=== PATIENT | male | born 1965 | race Two or more races ===

== ENCOUNTER → 2020-08-01 | Emergency (ER) | payer OTHER ==
[~2020-08-01] VITALS: Ht 180.3 cm; Wt 93.9 kg
[~2020-08-01] MED LIST: FORTAMET1000 MG; TRULICITY1.5 MG/0.5
== END | disposition home or self-care (01) ==
LOC: ER 22:08
DX: S01.02XA Laceration with foreign body of scalp, initial encounter (principal); W25.XXXA Contact with sharp glass, initial encounter; Y93.89 Activity, other specified; Y92.511 Restaurant or cafe as the place of occurrence of the external cause; Y99.8 Other external cause status